=== PATIENT | female | born 1985 | race Caucasian/White ===

== ENCOUNTER → 2016-11-25 | Outpatient (CLI) | payer MEDICAID | LOC: BMCIMAGING 09:22 | PROVIDERS: ATTEND Orthopaedic Surgery Hand Surgery | DX: M24.022 Loose body in left elbow (principal) ==

== ENCOUNTER → 2017-01-03 | Outpatient (CLI) | payer MEDICAID | LOC: FIMAGING 12-23 08:02 | PROVIDERS: ATTEND Orthopaedic Surgery Hand Surgery | DX: M24.022 Loose body in left elbow (principal); M24.122 Other articular cartilage disorders, left elbow ==